=== PATIENT | female | born 1985 | race Caucasian/White ===

== ENCOUNTER → 2017-01-04 | Outpatient (CLI) | payer OTHER ==
[~2017-01-04] MED LIST: PREN-148 PO
--- OUTSIDE RECORDS SUMMARY | 2017-01-04 16:34 | XMS REPORT ---
Author Author Heidy Kennedy [facility] Address [address] [place], [place] [id number] Care Team Providers Care Public Health Officer Name Role Phone Heidy Kennedy PCP Unavailable Allergies and Adverse Reactions Name Reaction Notes NO KNOWN DRUG ALLERGIES Plan of Treatment Not available. Medications Active Name Start Date Estimated Completion Date SIG Comments Mobic 15 mg oral tablet take 1 tablet (15 mg) by oral route once daily amoxicillin 500 mg oral capsule 04/01/2016 04/08/2016 Take 2 500mg capsules BID for 7 days Name Start Date Expiration Date SIG Comments phentermine 37.5 mg oral tablet 02/23/2014 03/25/2014 take 1 tablet (37.5 mg) by oral route once daily before breakfast for 30 days azithromycin 250 mg oral tablet 11/13/2014 11/18/2014 take 2 tablets (500 mg) by oral route once daily for 1 day then 1 tablet (250 mg) by oral route once daily for 4 days Bactrim DS 800-160 mg oral tablet 04/15/2015 04/22/2015 take 1 tablet by oral route every 12 hours for 7 days phentermine 37.5 mg oral tablet 11/21/2015 12/21/2015 take 1 tablet (37.5 mg) by oral route once daily before breakfast for 30 days Discontinued Name Start Date Discontinued Date SIG Comments omeprazole Oral 11/30/2012 Take one tablet daily Sprintec (28) 0.25-35 mg-mcg oral tablet 04/12/2012 11/30/2012 1QD - TAKE ONE TABLET BY MOUTH EVERY DAY Sprintec (28) 0.25-35 mg-mcg oral tablet 02/14/2015 09/23/2015 take 1 tablet by oral route once daily phentermine 37.5 mg oral tablet 02/14/2015 04/15/2015 take 1 tablet (37.5 mg) by oral route once daily before breakfast hydrocodone-acetaminophen 5-325 mg oral tablet 04/16/2015 09/23/2015 take 1 tablet by oral route every 4-6 hours as needed for pain Brintellix 10 mg oral tablet 10/21/2015 11/21/2015 take 1 tablet (10 mg) by oral route once daily at the same time each day Medrol (Aleksey) 4 mg oral tablets,dose pack 10/21/2015 11/21/2015 take as directed Celexa 20 mg oral tablet 11/21/2015 03/10/2016 take 1 tablet (20 mg) by oral route once daily for 30 days Flonase Allergy Relief 50 mcg/actuation nasal spray,suspension 02/24/201603/10 inhale 1 spray (50 mcg) in each nostril by intranasal route once daily Zyrtec-D 5-120 mg oral tablet extended release 12 hr 02/24/2016 03/10/2016 take 1 tablet by oral route every 12 hours Zithromax Z-Aleksey 250 mg oral tablet 03/04/2016 03/10/2016 take 2 tablets by oral once daily for 1 day, then 1 (250mg) by oral route daily for 4 days Problem List Description Status Onset Anxiety Active 11/21/2015 Depression Active 11/21/2015 Vital Signs Date Time BP-Sys(mm[Hg] BP-Sandy(mm[Hg]) HR(bpm) RR(rpm) Temp WT HT HC BMI BSA BMI Percentile O2 Sat(%) 03/10/2016 3:51:00 PM 122 mmHg 64 mmHg 77 bpm 18 rpm 98.2 F 194.5 lbs 65 in 32.37 kg/m2 2.01 m2 99 % 11/21/2015 3:36:00 PM 124 mmHg 64 mmHg 78 bpm 18 rpm 97.7 F 190.25 lbs 65 in 31.6589 kg/m 1.9894 m 98 % 10/21/2015 9:12:00 AM 124 mmHg 66 mmHg 78 bpm 18 rpm 97.7 F 65 in 97 % 09/23/2015 9:11:00 AM 132 mmHg 76 mmHg 80 bpm 18 rpm 97.8 F 199.25 lbs 65 in 33.1566 kg/m 2.0359 m 96 % 04/15/2015 9:50:00 AM 126 mmHg 76 mmHg 78 bpm 18 rpm 97.9 F 174.125 lbs 65 in 28.98 kg/m2 1.90 m2 97 % 02/14/2015 8:25:00 AM 124 mmHg 64 mmHg 77 bpm 18 rpm 97.7 F 170.125 lbs 65 in 28.31 kg/m 1.8812 m 100 % 01/16/2015 9:47:00 AM 116 mmHg 64 mmHg 85 bpm 18 rpm 98.7 F 178.375 lbs 65.5 in 29.23 kg/m2 1.93 m2 98 % 12/05/2014 8:44:00 AM 104 mmHg 68 mmHg 99 bpm 16 rpm 98.5 F 183.5 lbs 65.5 in 30.0713 kg/m 1.9613 m 100 % 11/13/2014 11:39:00 AM 112 mmHg 68 mmHg 73 bpm 16 rpm 97.4 F 199.375 lbs 65.5 in 32.67 kg/m2 2.04 m2 99 % 09/12/2014 4:18:00 PM 132 mmHg 73 mmHg 69 bpm 97.6 F 192 lbs 65.5 in 31.4642 kg/m 2.0062 m 02/23/2014 9:55:00 AM 126 mmHg 66 mmHg 72 bpm 18 rpm 97.5 F 182.375 lbs 65.5 in 29.89 kg/m2 1.96 m2 98 % 11/23/2013 3:46:00 PM 126 mmHg 66 mmHg 78 bpm 18 rpm 98.6 F 187.375 lbs 65.5 in 30.7063 kg/m 1.9819 m 99 % 10/17/2013 2:39:00 PM 126 mmHg 64 mmHg 63 bpm 18 rpm 97.6 F 203 lbs 65.5 in 33.27 kg/m2 2.06 m2 100 % 09/07/2013 3:02:00 PM 138 mmHg 81 mmHg 76 bpm 98.2 F 194.375 lbs 65.5 in 31.8534 kg/m 2.0186 m 08/10/2013 2:00:00 PM 133 mmHg 78 mmHg 83 bpm 97.8 F 191.125 lbs 65.5 in 31.32 kg/m2 2.00 m2 11/30/2012 4:02:00 PM 135 mmHg 80 mmHg 85 bpm 96.4 F 165.375 lbs 65.5 in 27.101 kg/m 1.8619 m 04/11/2012 2:45:00 PM 136 mmHg 85 mmHg 84 bpm 97.9 F 192.375 lbs 65.5 in 31.53 kg/m2 2.01 m2 04/01/2011 2:16:00 PM 140 mmHg 91 mmHg 87 bpm 98.4 F 195 lbs 65 in 32.4494 kg/m 2.0141 m 05/02/2010 9:45:00 AM 100 mmHg 60 mmHg 72 bpm 18 rpm 98 F 180 lbs 04/08/2010 10:20:00 AM 110 mmHg 70 mmHg 80 bpm 18 rpm 98.7 F 182 lbs 03/26/2010 3:42:00 PM 123 mmHg 79 mmHg 84 bpm 97.8 F 185 lbs 65 in 30.79 kg/m2 1.96 m2 Social History Name Description Comments Alcohol Use - Occasional 1-2 times/month on weekend Tobacco Former smoker 03/10/2016 - History of Procedures Date Ordered Description Order Status 12/17/2015 12:00 AM URNLS DIP STICK/TABLET RGNT AUTO W/O MICROSCOPY Returned 04/11/2012 12:00 AM CYTOPATH C/V MANUAL Returned 04/11/2012 12:00 AM SPECIMEN HANDLING OFFICE-LAB Reviewed 04/11/2012 12:00 AM N. GONORRHOEAE ASSAY W/OPTIC Returned 04/11/2012 12:00 AM CHLAMYDIA CULTURE Returned 11/30/2012 12:00 AM CYTOPATH C/V THIN LAYER Returned 11/30/2012 12:00 AM SPECIMEN HANDLING OFFICE-LAB Reviewed 11/30/2012 12:00 AM N.GONORRHOEAE DNA AMP PROB Returned 11/30/2012 12:00 AM CHLAMYDIA CULTURE Returned 11/30/2012 12:00 AM HIV-1ANTIBODY Returned 11/30/2012 12:00 AM URINALYSIS AUTO W/SCOPE Returned 11/30/2012 12:00 AM OBSTETRIC PANEL Returned 02/09/2013 12:00 AM ALPHA-FETOPROTEIN SERUM Returned 03/09/2013 12:00 AM OB US >/=14 WKS SNGL FETUS Returned 05/05/2013 12:00 AM OB US LIMITED FETUS(S) Returned 05/08/2013 12:00 AM GLUCOSE TEST Returned 05/08/2013 12:00 AM COMPLETE CBC W/AUTO DIFF WBC Returned 05/08/2013 12:00 AM Type and screen Returned 06/26/2013 12:00 AM CULTURE OTHR SPECIMN AEROBIC Returned 07/05/2013 12:00 AM OB US LIMITED FETUS(S) Returned 08/10/2013 12:00 AM COMPLETE CBC AUTOMATED Returned 09/07/2013 12:00 AM CYTOPATH C/V MANUAL Returned 09/07/2013 12:00 AM SPECIMEN HANDLING OFFICE-LAB Reviewed 03/26/2010 12:00 AM CYTOPATH C/V MANUAL Reviewed 03/26/2010 12:00 AM SPECIMEN HANDLING OFFICE-LAB Reviewed 03/26/2010 12:00 AM N. GONORRHOEAE ASSAY W/OPTIC Reviewed 03/26/2010 12:00 AM CHLAMYDIA CULTURE Reviewed 03/26/2010 12:00 AM Breast Ultrasound Reviewed 09/12/2014 12:00 AM SPECIMEN HANDLING OFFICE-LAB Reviewed 09/12/2014 12:00 AM CYTOPATH C/V THIN LAYER Returned 11/13/2014 12:00 AM THER/PROPH/DIAG INJ SC/IM Reviewed 11/13/2014 12:00 AM Decadron, Per 1 Mg [facility]# [address]-68 Reviewed 11/13/2014 12:00 AM Depo-Medrol, Per 80 Mg [facility]#7315-8841-47 Reviewed 04/01/2011 12:00 AM CYTOPATH C/V MANUAL Reviewed 04/01/2011 12:00 AM SPECIMEN HANDLING OFFICE-LAB Reviewed Results Summary Data and Description Results 11/30/2012 4:45 PM WBC 7.7 RBC 4.43 HGB 13.40 g/dLHCT 38.70 %MCV 87.0 fLMCH 30.20 pgMCHC 34.60 g/dLRDW CV 12.20 %MPV 10.50 fLPLT 210 %NEUT 73.50 %%LYMP 17.90 %%MONO 8.0 %%EOS 0.50 %%BASO 0.10 %#NEUT 5.67 #LYMP 1.38 #MONO 0.62 #EOS 0.04 #BASO 0.01 COLOR YELLOW APPEARANCE CLEAR SPEC GRAV 1.020 pH 6.0 PROTEIN NEGATIVE GLUCOSE NEGATIVE KETONE NEGATIVE BILIRUBIN NEGATIVE BLOOD NEGATIVE NITRITE NEGATIVE LEUK SCREEN NEGATIVE CASTS/LPF NEGATIVE CRYSTALS NEGATIVE MUCOUS THRDS NEGATIVE BACTERIA NEGATIVE EPITH CELLS FEW SQUAMOUS TRICHOMONAS NEGATIVE YEAST NEGATIVE ABO/Rh Type O Positive HIV AG/AB COMBO 0.33 RUBELLA 14.0 IU/mL 05/08/2013 5:46 PM WBC 8.9 RBC 3.62 HGB 11.20 g/dLHCT 32.60 %MCV 90.0 fLMCH 30.90 pgMCHC 34.40 g/dLRDW CV 12.40 %MPV 10.60 fLPLT 197 %NEUT 76.60 %%LYMP 18.60 %%MONO 4.30 %%EOS 0.40 %%BASO 0.10 %#NEUT 6.84 #LYMP 1.66 #MONO 0.38 #EOS 0.04 #BASO 0.01 07/26/2013 5:35 PM WBC 10.8 RBC 4.03 HGB 12.20 g/dLHCT 35.20 %MCV 87.0 fLMCH 30.30 pgMCHC 34.70 g/dLRDW CV 12.50 %MPV 10.70 fLPLT 211 %NEUT 72.50 %%LYMP 20.30 %%MONO 6.60 %%EOS 0.50 %%BASO 0.10 %#NEUT 7.81 #LYMP 2.18 #MONO 0.71 #EOS 0.05 #BASO 0.01 ABO/Rh Type O Positive 07/27/2013 2:25 PM WBC 11.6 RBC 4.10 HGB 12.20 g/dLHCT 36.40 %MCV 89.0 fLMCH 29.80 pgMCHC 33.50 g/dLRDW CV 12.50 %MPV 10.80 fLPLT 186 PROTIME 9.70 secsINR 0.9 PTT 25.10 secsFIBRINOGEN 516.0 mg/dL 07/27/2013 6:00 PM WBC 13.7 RBC 4.25 HGB 12.80 g/dLHCT 37.60 %MCV 89.0 fLMCH 30.10 pgMCHC 34.0 g/dLRDW CV 12.40 %MPV 10.90 fLPLT 215 07/28/2013 7:10 AM WBC 18.3 RBC 3.56 HGB 10.90 g/dLHCT 31.60 %MCV 89.0 fLMCH 30.60 pgMCHC 34.50 g/dLRDW CV 12.40 %MPV 10.60 fLPLT 209 08/10/2013 2:36 PM WBC 6.5 RBC 4.02 HGB 11.90 g/dLHCT 35.80 %MCV 89.0 fLMCH 29.60 pgMCHC 33.20 g/dLRDW CV 12.20 %MPV 10.50 fLPLT 510 12/18/2015 4:23 PM COLOR YELLOW APPEARANCE CLEAR SPEC GRAV 1.015 pH 7.5 PROTEIN TRACE GLUCOSE NEGATIVE mg/dLKETONE TRACE BILIRUBIN NEGATIVE BLOOD TRACE- INTACT NITRITE NEGATIVE LEUK SCREEN NEGATIVE CASTS/LPF NEGATIVE /LPFCRYSTALS NEGATIVE MUCOUS THRDS FEW BACTERIA FEW EPITH CELLS FEW SQUAMOUS /HPFTRICHOMONAS NEGATIVE YEAST NEGATIVE History Of Immunizations Name Date Admin Mfg Name Mfg Code Trade Name Lot# Route Inj Vis Given Vis Pub CVX Influenza 08/13/2014 Not Entered NE Not Entered Not Entered Not Entered 11/01/2015 11/01/2015 141 Influenza 08/16/2015 Not Entered NE Fluvirin Not Entered Not Entered 10/02/2015 11/01/2015 140 History of Past Illness Name Date of Onset Comments Routine gynecological examination Mar 26 2010 3:49PM Contraception, Surveillance Mar 26 2010 3:49PM Breast Lump Mar 26 2010 3:49PM Obesity Mar 26 2010 3:49PM Tobacco Abuse Mar 26 2010 3:49PM Left breast mass Apr 08 2010 10:23AM Acid reflux Breast Neoplasm, Benign May 02 2010 9:51AM Post Operative Follow-up Visit May 02 2010 9:51AM Anxiety 11/21/2015 Depression 11/21/2015 Routine gynecological examination Apr 01 2011 2:17PM Routine gynecological examination Apr 11 2012 2:47PM Obesity Apr 11 2012 2:47PM Tobacco Abuse Apr 11 2012 2:47PM Contraception, Surveillance Apr 11 2012 2:47PM test confirmed positive Nov 30 2012 4:04PM , First Normal Feb 09 2013 10:06AM Large For Dates, Antepartum Apr 07 2013 10:00AM Genitourinary Organ Radiologic Abnormality Apr 07 2013 10:00AM , First Normal May 08 2013 4:45PM Group B Strep Screening, Jun 26 2013 4:56PM , High Risk Jun 26 2013 4:56PM Large For Dates, Antepartum Jul 05 2013 3:58PM Postoperative Examination Following Surgery Aug 10 2013 2:03PM Anemia Aug 10 2013 2:03PM Post- Follow-Up Sep 07 2013 3:04PM Body Mass Index [BMI]; body mass index between 30-39, adult; body mass index 33.0-33.9, adult Oct 17 2013 2:42PM Contraceptive Counseling Oct 17 2013 2:42PM Body Mass Index [BMI]; body mass index between 30-39, adult; body mass index 30.0-30.9, adult Nov 23 2013 3:48PM Contraceptive Counseling Nov 23 2013 3:48PM Contraceptive Counseling Feb 23 2014 9:57AM Body Mass Index [BMI]; body mass index between 25-29, adult; body mass index 29.0-29.9, adult Feb 23 2014 9:57AM Routine gynecological examination Sep 12 2014 4:21PM Upper Respiratory Infections Nov 13 2014 11:45AM Weight gain Nov 13 2014 11:45AM Body mass index 32.0-32.9, adult Nov 13 2014 11:45AM Body Mass Index [BMI]; body mass index between 30-39, adult; body mass index 30.0-30.9, adult Dec 05 2014 8:49AM Acid reflux Dec 05 2014 8:49AM Acid reflux Jan 16 2015 9:49AM BMI 29.0-29.9,adult Jan 16 2015 9:49AM Overweight Feb 14 2015 8:27AM Irregular menses Feb 14 2015 8:27AM Abscess Apr 15 2015 9:51AM Depression Sep 23 2015 9:13AM Anxiety and depression Oct 21 2015 9:15AM BMI 31.0-31.9,adult Oct 21 2015 9:15AM Acute nonintractable headache, unspecified headache type Oct 21 2015 9:15AM Body Mass Index [BMI]; body mass index between 30-39, adult; body mass index 31.0-31.9, adult Nov 21 2015 3:39PM Anxiety Nov 21 2015 3:39PM Depression Nov 21 2015 3:39PM Dysuria Dec 17 2015 3:55PM Foot arch pain, right Mar 10 2016 3:53PM Payers Insurance Name Company Name Plan Name Plan Number Policy Number Policy Group Number Start Date [employer] Benefits [employer] Benefits [id number] N/A [employer] Financial Assistance [employer] [phone] N/A History of Encounters Visit Date Visit Type Provider 03/10/2016 Office visit Heidy Kennedy SAP ANALYST 11/21/2015 Office visit Heidy Kennedy SAP ANALYST 10/21/2015 Office visit Heidy Kennedy SAP ANALYST 09/23/2015 Office visit Heidy Kennedy SAP ANALYST 04/15/2015 Office visit Heidy Kennedy SAP ANALYST 02/14/2015 Office visit Heidy Kennedy SAP ANALYST 01/16/2015 Office visit Heidy Kennedy SAP ANALYST 12/05/2014 Office visit Heidy Kennedy SAP ANALYST 11/13/2014 Office visit 11/13/2014 Office visit Heidy Kennedy SAP ANALYST 09/12/2014 Office visit Tasneem Patiño SAP ANALYST 02/23/2014 Office visit Heidy Kennedy SAP ANALYST 11/23/2013 Office visit Heidy Kennedy SAP ANALYST 10/17/2013 Office visit Heidy Brent SAP ANALYST 09/07/2013 Office visit Horacio Buchanan MD 08/10/2013 Office visit Horacio Buchanan MD 07/27/2013 Hospital Ramon So MD 07/27/2013 [facility] Horacio Buchanan MD 07/19/2013 Office visit Horacio Buchanan MD 07/12/2013 Office visit Horacio Buchanan MD 07/05/2013 Office visit Horacio Buchanan MD 06/26/2013 Office visit Horacio Buchanan MD 06/26/2013 [facility] Horacio Buchanan MD 06/19/2013 Office visit Horacio Buchanan MD 06/05/2013 Office visit Tasneem Patiño SAP ANALYST 05/22/2013 Office visit Horacio Buchanan MD 05/08/2013 Office visit Horacio Buchanan MD 04/06/2013 Office visit Horacio Buchanan MD 03/09/2013 Office visit Horacio Buchanan MD 02/09/2013 Office visit Horacio Buchanan MD 01/12/2013 Office visit Horacio Buchanan MD 2012 Office visit Horacio Buchanan MD 11/30/2012 Office visit Horacio Buchanan MD 04/11/2012 Office visit Horacio Buchanan MD 04/01/2011 Office visit Horacio Buchanan MD 05/02/2010 Surgery Burton Patton MD 04/28/2010 Surgery Burton Patton MD 04/08/2010 Surgery Burton Patton MD 03/26/2010 Office visit Horacio Buchanan MD
--- NOTE | 2017-01-04 17:09 | Diagnostic Imaging Report ---
INDICATION: Anatomical survey. COMPARISON: None. DISCUSSION: Transabdominal sonographic evaluation of the gravid uterus was performed. Single live intrauterine at 21 weeks 3 days by sonographic measurements. Grade 2 placenta is located anteriorly with no placenta previa. Normal amniotic fluid index. presentation varied throughout the exam. heart rate measures 150 beats per minute. The cervix measures 5 cm. The four-chamber heart was not well visualized due to positioning. Recommend short-term sonographic followup. Otherwise, there was good visualization of the kidneys, bladder, stomach, brain, three-vessel cord and insertion, spine, and extremities. Biparietal diameter measures 4.97 cm. Head circumference measures 18.7 cm. Abdominal circumference measures 16.76 cm. Femur length measures 3.6 cm. EDC by today's ultrasound is 05/14/2017. Estimated weight is 431 g which is in the 50th percentile. IMPRESSION: 1. Single live intrauterine at 21 weeks 3 days by sonographic measurements. 2. Poor visualization of the four-chamber heart due to positioning. Recommend short-term sonographic followup. 3. Remainder of the anatomical survey appears within normal limits. Dictated by: Dictated on workstation # [id number]
== END ==
LOC: RAD 16:29
PROVIDERS: ATTEND Obstetrics & Gynecology
DX: O24.415 Gestational diabetes mellitus in pregnancy, controlled by oral hypoglycemic drugs (principal)
CPT/HCPCS: 76805

== ENCOUNTER 2017-03-09 11:55 | Outpatient (CLI) | payer OTHER ==
[~2017-03-09] VITALS: Ht 162.6 cm; Wt 107.5 kg
[2017-03-09] MEDS ORDERED: PREN-148 PO ×2 (12:48)
[2017-03-09 15:31] VITALS: BP 127/59
--- NOTE | 2017-03-10 11:32 | Physician Query-Final Dx ---
JOSE DE JESUS BARTON 03/10/17 1132: Clinic Account Progress/Dx Physician Query: Please give diagnosis Date of Service March 09, 2017 at 11:55 HAILE PRASAD DO 03/10/17 1525: Clinic Account Progress/Dx DIAGNOSIS: Diagnosis decreased movement, third trimester JOSE DE JESUS BARTON March 10, 2017 11:32 HAILE PRASAD DO March 10, 2017 15:25
== END 2017-03-09 13:30 | disposition home or self-care (01) ==
LOC: WSo 11:55 → LDRP 11:57 → WSo 13:30
PROVIDERS: ATTEND Obstetrics & Gynecology
DX: O36.8130 Decreased fetal movements, third trimester, not applicable or unspecified (principal); Z3A.33 33 weeks gestation of pregnancy
CPT/HCPCS: 99212

== ENCOUNTER → 2017-03-10 | Outpatient (CLI) | payer OTHER ==
--- NOTE | 2017-03-10 18:12 | Diagnostic Imaging Report ---
INDICATION: Gestational diabetes. TECHNIQUE: Multiple real-time grayscale images were obtained over the gravid uterus. COMPARISON: None FINDINGS: There is a single living intrauterine in a transverse presentation. The amniotic fluid index is 14. The placenta is grade 3 and anterior. There is no previa. The heart rate is 144 beats per minute and regular. Cervical length is 6.3 cm. Four-chamber heart is seen well. The sonographically estimated gestational age by this sonogram is 31 weeks 2 days. Biometrical measurements are as follows: Biparietal 7.74 cm, age 31 weeks 1 days. Head circumference 28.82 cm, age 31 weeks 5 days. Abdominal circumference 26.81 cm, age 31 weeks 0 days. Femur length 5.99 cm, age 31 weeks 2 days. Sonographic estimate age: 31 weeks 2 days. Sonographic estimated date of delivery: 05/10/2017. Estimated Weight: 1697 gm (+/- 248 gm). LMP percentile: 71%. heart rate: 144 beats per minute. number: 1 of 1. IMPRESSION: Single living intrauterine with sonographically estimated gestational age of 31 weeks 2 days and estimated date of confinement of May 18, 2017. Dictated by: Dictated on workstation # [id number]
== END ==
LOC: RAD 17:19
PROVIDERS: ATTEND Obstetrics & Gynecology
DX: O24.414 Gestational diabetes mellitus in pregnancy, insulin controlled (principal); Z3A.31 31 weeks gestation of pregnancy
CPT/HCPCS: 76816

== ENCOUNTER 2017-04-26 15:19 | Outpatient (CLI) | payer OTHER ==
[~2017-04-26] VITALS: Ht 162.6 cm; Wt 108.6 kg
[2017-04-26 15:25] VITALS: BP 140/80
== END 2017-04-26 16:00 ==
LOC: PREOP 15:19
PROVIDERS: ATTEND Obstetrics & Gynecology
DX: Z01.818 Encounter for other preprocedural examination (principal); Z11.2 Encounter for screening for other bacterial diseases; O34.211 Maternal care for low transverse scar from previous cesarean delivery
CPT/HCPCS: 87081

== ENCOUNTER 2017-04-29 18:05 | Outpatient (CLI) | payer OTHER ==
[~2017-04-29] VITALS: Ht 162.6 cm; Wt 124.1 kg
[2017-04-29 18:10] VITALS: BP 120/82
[2017-04-29 19:45] VITALS: BP 139/63
--- NOTE | 2017-04-30 08:45 | Physician Query-Final Dx ---
JOSE DE JESUS BARTON 04/30/17 0845: Clinic Account Progress/Dx Physician Query: Please give diagnosis Date of Service Apr 29, 2017 at 18:05 ADE HOPPER DO 04/30/17 0952: Clinic Account Progress/Dx DIAGNOSIS: Diagnosis 37 week iup back pain GDM JOSE DE JESUS BARTON Apr 30, 2017 08:45 ADE HOPPER DO Apr 30, 2017 09:52
== END 2017-04-29 19:55 | disposition home or self-care (01) ==
LOC: LDRP 18:05 → WSo 18:05
PROVIDERS: ATTEND Obstetrics & Gynecology
DX: O99.89 Other specified diseases and conditions complicating pregnancy, childbirth and the puerperium (principal); O26.893 Other specified pregnancy related conditions, third trimester; M54.9 Dorsalgia, unspecified; O24.419 Gestational diabetes mellitus in pregnancy, unspecified control; Z3A.37 37 weeks gestation of pregnancy
CPT/HCPCS: 99213

== ENCOUNTER 2017-05-05 05:36 | Inpatient (IN) | payer OTHER ==
[~2017-05-05] VITALS: Ht 170.2 cm; Wt 108.0 kg
[~2017-05-05 05:36] MED LIST changes: +CITRIC ACID/SOB CIT (BICITRA) 30 ML UDC ONE; +FAMOTIDINE 20MG/2ML IV (PEPCID) ONE; +METOCLOPRAMIDE INJ 10 MG/2 ML (REGLAN) ONE; +ceFAZolin 2 GM/50 ML NS 50 ML ONE
[2017-05-05] MEDS ORDERED: LACTATED RINGERS 1,000 ML IV PRN ×2 (06:05)
[2017-05-05] MEDS ORDERED: METOCLOPRAMIDE INJ 10 MG/2 ML (REGLAN) IV ONE ×2 (06:15→07:30)
[2017-05-05] MEDS ORDERED: FAMOTIDINE 20MG/2ML IV (PEPCID) IV ONE ×2 (06:15→07:30)
[2017-05-05] MEDS ORDERED: CITRIC ACID/SOB CIT (BICITRA) 30 ML UDC PO ONE ×2 (06:15→07:30)
[2017-05-05 06:37] LABS: BASOPHILS % (AUTO) 0 % (0-10); EOSINOPHILS # (AUTO) 0.1 10^3/uL (0.0-0.3); EOSINOPHILS % (AUTO) 1 % (0-10); LYMPHOCYTES # (AUTO) 1.7 X 10^3 (1.0-4.0); LYMPHOCYTES % (AUTO) 22 % (12-44); MEAN CORPUSCULAR HEMOGLOBIN 29 PG (25-34); MEAN CORPUSCULAR HGB CONC 34 G/DL (32-36); MEAN CORPUSCULAR VOLUME 86 FL (80-99); MEAN PLATELET VOLUME 11.6 FL (7.4-10.4); MONOCYTES # (AUTO) 0.5 X 10^3 (0.0-1.0); MONOCYTES % (AUTO) 7 % (0-12); NEUTROPHILS # (AUTO) 5.2 X 10^3 (1.8-7.8); NEUTROPHILS % (AUTO) 70 % (42-75); PLATELET COUNT 177 10^3/uL (130-400); RED BLOOD COUNT 4.14 10^6/uL (4.35-5.85); RED CELL DISTRIBUTION WIDTH 12.4 % (10.0-14.5); WHITE BLOOD COUNT 7.5 10^3/uL (4.3-11.0)
[2017-05-05 07:00] VITALS: BP 138/61
[2017-05-05] MEDS ORDERED: ONDANSETRON 4 MG/2 ML (SDV) Z0FRAN ONE (07:02)
[2017-05-05] MEDS ORDERED: DEXAMETHASONE PF 10 MG/ML (DECADRON) VIAL ONE (07:02)
[2017-05-05] MEDS ORDERED: OXYTOCIN/NORMAL SALINE 1,000 ML IV ONE (07:02)
[2017-05-05] MEDS ORDERED: fentaNYL INJECTION 100 MCG/2 ML AMP ONE (07:03)
--- NOTE | 2017-05-05 07:07 | History & Physical-OB ---
OB - Chief Complaint & HPI Date/Time Date of Admission: Date of Admission: May 05, 2017 at 06:01 Time Seen by Provider: 07:05 Chief Complaint/History OB-Reason for Admission/Chief: Section Hx : 2 Hx Para: 1 Expected Date of Delivery: May 18, 2017 Gestational Age in Weeks: 38 Indication for : desires repeat Other reason for admission: GDMA2 on glyburide History of Labs O pos Antibody neg RNI RPR NR HBsAg NR HIV NR GC neg GBS neg Allergies and Home Medications Allergies Coded Allergies: No Known Drug Allergies (Unverified , 03/09/17) Home Medications Vit #76/Iron,Carb/FA 1 Each Tablet, 1 EACH PO DAILY, (Reported) OB - History Hx of Present Care: Yes Ultrasounds: Normal mid trimester US Obstetrical Complications: Gestational Diabetes Medical Complications: None Delivery History Adverse Rxn to Tranfusion: No (N/A) Patient Past Medical History BMI >35 Social History/Family History HIV/AIDS: No Recent Infectious Disease Expo: No Sexually Transmitted Disease: No Alcohol Use: Denies Use Recreational Drug Use: No OB - Admission Exam Physical Exam Date Seen by Provider: May 05, 2017 Time Seen by Provider: 07:00 HEENT: NCAT Heart: Rhythm Normal Lungs: Clear Abdomen: Gravid Extremities: Normal Reflexes: Normal Heart Rate: 130's Accelerations: Accelerations Present Decelerations: No Decelerations Short Term Variability: Present Halfway Variability: Average (6-25) Contractions on Admission: >10 Minutes Apart Intensity: Mild Labs Laboratory Tests Test 05/05/17 06:15 Range/Units White Blood Count 7.5 4.3-11.0 10^3/uL Red Blood Count 4.14 L 4.35-5.85 10^6/uL Hemoglobin 12.1 11.5-16.0 G/DL Hematocrit 36 35-52 % Mean Corpuscular Volume 86 80-99 FL Mean Corpuscular Hemoglobin 29 25-34 PG Mean Corpuscular Hemoglobin Concent 34 32-36 G/DL Red Cell Distribution Width 12.4 10.0-14.5 % Platelet Count 177 130-400 10^3/uL Mean Platelet Volume 11.6 H 7.4-10.4 FL Neutrophils (%) (Auto) 70 42-75 % Lymphocytes (%) (Auto) 22 12-44 % Monocytes (%) (Auto) 7 0-12 % Eosinophils (%) (Auto) 1 0-10 % Basophils (%) (Auto) 0 0-10 % Neutrophils # (Auto) 5.2 1.8-7.8 X 10^3 Lymphocytes # (Auto) 1.7 1.0-4.0 X 10^3 Monocytes # (Auto) 0.5 0.0-1.0 X 10^3 Eosinophils # (Auto) 0.1 0.0-0.3 10^3/uL Basophils # (Auto) 0.0 0.0-0.1 10^3/uL OB - Assessment/Plan/Diagnosis Assessment Assessment: section Plan Plan: Section Discharge Diagnosis Diagnosis: 31 yo @ 38.1 GDMA2 GBS neg Previous x 1 ADE HOPPER DO May 05, 2017 07:07
[2017-05-05] MEDS ORDERED: LACTATED RINGERS 1,000 ML IV SCH ×2 (07:17)
[2017-05-05] MEDS ORDERED: OXYTOCIN/NORMAL SALINE 500 ML IV SCH (07:27)
[2017-05-05] MEDS ORDERED: TETANUS,DIPTH,PERTUSS P/F (BOOSTRIX) 0.5 ML VIAL IM SCH (07:30)
[2017-05-05] MEDS ORDERED: HYDROmorphone (DILAUDID) 2 MG/ML VIAL IVP PRN (07:30)
[2017-05-05] MEDS ORDERED: ONDANSETRON 4 MG/2 ML (SDV) Z0FRAN IVP PRN (07:30)
[2017-05-05] MEDS ORDERED: MEASLES,MUMPS,RUBELLA 1 EA INJ SC SCH (07:30)
--- NOTE | 2017-05-05 07:31 | Discharge Inst-Women's Service ---
Discharge Inst-Women's Serv Depart Medication/Instructions New, Converted or Re-Newed RX: RX on Chart Consults/Follow Up Additional Follow Up: Yes Orders/Referrals Dr. Waddell i n7-10 days and in 6 weeks Activity Activity: Activity as Tolerated Driving Instructions: No Driving for 1 Week NO SMOKING: NO SMOKING Nothing Inside Vagina: No Douching, No [place], No Tampons Diet Discharge Diet: No Restrictions Symptoms to Report to : Bleeding Excessive, Pain Increased, Fever Over 101 Degrees F, Vaginal Bleeding Increase, Questions/Concerns For Any Problems or Questions: Contact Your Physician Skin/Wound Care Infection Signs and Symptoms: Increased Redness, Foul Odor of Wound, Increased Drainage, Skin Itchy or Has a Rash, Increased Swelling, Temperature Above 101 F Operative Area Clean and Dry: Keep Incision Clean/Dry Stitches/Mike/Dermabond: Dermabond, Care of Stitches Bathing Instructions: ADE Mixon DO May 05, 2017 07:31
[2017-05-05] MEDS ORDERED: HYDR-3812 PO (07:32)
[2017-05-05] MEDS ORDERED: DOCU100C37 PO (07:32)
[2017-05-05] MEDS ORDERED: IBUP-1773 PO (07:32)
[2017-05-05] MEDS ORDERED: ceFAZolin 2 GM/50 ML NS 50 ML IV NR (07:45)
[2017-05-05] MEDS ORDERED: PHENYLEPHRINE 100 MCG/ML 10 ML (ANESTHESIA) SYR ONE (07:47)
--- NOTE | 2017-05-05 08:29 | Progress Note-Post Operative ---
Post-Operative Progess Note Surgeon (s)/Unit Manager Rn (s) Surgeon ADE HOPPER DO Unit Manager Rn: Selena Juarez ELECTRIC BATH ATTENDANT Pre-Operative Diagnosis Previous x 1, GDMA2 Post-Operative Diagnosis same Procedure & Operative Findings Date of Procedure 05/05/17 Procedure Performed/Findings UOP: 80 mL Fluid 1200 ml LR EBL: 600 Findings: live female weight 8lbs 10 oz, APGARs 8/9, grossly normal uterus, tubes and ovaries Patient was taken the operating room where spinal analgesia is under adequate she's placed in the supine position with leftward tilt prepped and draped in normal sterile fashion. Anesthesia is tested and found to be adequate, timeout was performed. I then proceeded with making a Pfannenstiel skin incision through the previously existing scar using the knife and carried down to the underlying fascia using Bovie cautery. The fascial incision is extended laterally using Bovie cautery, I then grasped the superior aspect of the fascial incision using Michelle clamps and tented upward and dissected off of the underlying rectus muscles. In a similar fashion, the inferior margin of the rectus fascia is grasped with Ethan clamps and tented upward and dissected under lying rectus muscles. The rectus and pyramidalis muscles are then dissected in the midline using Austin scissors exposing the peritoneum. the peritoneum is then entered bluntly and the peritoneal incision extended superiorly and inferiorly using Metzenbaum scissors with good visualization of underlying bladder and bowel. I then placed the Vikas ring retractor into the peritoneal incision which offers excellent lateral sidewall retraction. I identified the lower uterine segment which is found to be thinned out and make a low-transverse incision through the vesicouterine peritoneum using the knife and dissected off of the lower uterine segment cranial bladder flap. Myotomy is then continued until membranes are visualized which at that point I extend the uterine incision laterally and superiorly using banded scissors the infant is found well engaged into the pelvis and difficult to elevate it up out of the pelvis, however in doing so I'm able to elevate the 's head up to the incision and bulb suction the nares and oropharynx the anterior posterior shoulders were delivered and the infantis then brought out onto the operative field. the cord is doubly clamped and cut and the is handed off to nurses in attendance. Cord blood is collected. Three-vessel cord with intact placenta is delivered spontaneously thereafter. IV Pitocin is initiated to facilitate uterine contraction. Uterus becomes firm with bimanual massage. The uterus is then exteriorized and cleared of all endometrial clots and debris. I then closed the uterine incision using 0 Vicryl suture in a running locked fashion, a second layer of imbricating 0 Monocryl was placed and excellent hemostasis is noted after doing so. I then placed the uterus back within the pelvis and copiously irrigated the pelvis using normal saline. There is no active bleeding noted from any my dissection planes. I placed Interceed anti-adhesive over my low transverse incision, and proceed to closing the peritoneum using 3-0 Vicryl suture in a running fashion. The rectus muscles are reapproximated using 3-0 Vicryl suture in interrupted fashion. The fascia is reapproximated using 0 Vicryl suture in a running fashion. the subcutaneous tissue is reapproximated using 30 plain in interrupted subcutaneous stitch. And the skin is reapproximated using 4-0 Monocryl in a running subcuticular. Dermabond is applied to the incision and a sterile dressing is that he is a white tape. The patient tolerated the procedure well and is taken to the recovery area in stable condition. Lap and sponge count is correct at the end of the procedure and she may count is correct as well. 1 g of Ancef was given preoperatively for infection prophylaxis. Anesthesia Type spinal Estimated Blood Loss Estimated blood loss (mL): 600 Specimens/Packing Specimens Removed placenta ADE HOPPER May 05, 2017 8:29 am
[2017-05-05] MEDS ORDERED: diphenhydrAMINE 50 MG/ML INJ (BENADRYL) IV PRN (08:30)
[2017-05-05] MEDS ORDERED: METOCLOPRAMIDE INJ 10 MG/2 ML (REGLAN) IV PRN (08:30)
[2017-05-05] MEDS ORDERED: ONDANSETRON 4 MG/2 ML (SDV) Z0FRAN IV PRN (08:30)
[2017-05-05] MEDS ORDERED: NALOXONE 0.4 MG/ML 1 ML (NARCAN) VIAL IV PRN ×2 (08:30)
[2017-05-05] MEDS: DOCUSATE SODIUM 100 MG (COLACE) CAP PO SCH (09:41)
[2017-05-05] MEDS: KETOROLAC 30 MG/ML VIAL IVP SCH ×3 (09:41→22:33)
[2017-05-05 09:46] VITALS: BP 125/66
[2017-05-05] MEDS: HYDROcodone/APAP 5 MG/325 MG (LORTAB) TAB PO PRN ×4 (11:25→23:45)
[2017-05-05 13:57] VITALS: BP 140/72
[2017-05-05] MEDS ORDERED: hydrOXYzine (VISTARIL) 25 MG CAP PO PRN (14:00)
[2017-05-05] MEDS ORDERED: CATHETER FLUSH 10 ML SYR IV SCH ×2 (14:00)
--- OUTSIDE RECORDS SUMMARY | 2017-05-05 17:45 | XMS REPORT | CCD ---
Author Author LULI GARDNER Organization Unknown Address [address] [facility] [address] [place] [address] Care Team Providers Care Application Integrator Name Role Phone MAK, FRANK DO Attphys MAKSTEPHANIAFRANK DO Prisurg Allergies Allergy Code Allergy Type Reaction Status TAPE 0 Allergy to substance Active No Known Drug Allergies 0 Drug allergy Active Active Medications Medication Code Dose Units Frequency Route Modification Start Date/Time Docusate Sodium 100MG Oral Capsule 2103930 100 MG NEEDED EVERY 12 H PO for constipation 07/29/2013 08:53 Prescription Detail 100 MG PO NEEDED EVERY 12 H for constipation Ibuprofen 800MG Oral Tablet 791840 800 MG NEEDED EVERY 8 HR PO FOR PAIN 07/29/2013 08:53 Prescription Detail 800 MG PO NEEDED EVERY 8 HR FOR PAIN Oxycodone And Acetaminophen 325MG-5MG Oral Tablet [id number] 1 TAB NEEDED EVERY 6 HR PO FOR PAIN 07/29/2013 08:53 Prescription Detail 1 TAB PO NEEDED EVERY 6 HR FOR PAIN Problems Problem Code Start Date Resolved Date Status SINGLE DELIVERY BY [id number] Active Procedures Unknown or Not Available. Results Unknown or Not Available. Function Status Unknown or Not Available. History of Immunizations Immunization Code Date Tdap 115 07/28/2013 Plan of Treatment Unknown or Not Available. Social History Smoking Status Code Start Date End Date Former smoker [id number] 07/26/2013 Vital Signs Unknown or Not Available. Function Status Unknown or Not Available. Goals Unknown or Not Available. ASSESSMENTS Unknown or Not Available. Health Concerns Section Unknown or Not Available.
--- OUTSIDE RECORDS SUMMARY | 2017-05-05 17:45 | XMS REPORT | CCD ---
Author Author SHONDA GARRETT Unknown Address [address] [facility] [address] [place], [place] [id number] Care Team Providers Care Bookkeeping Teacher Name Role Phone DRISS JOHN, ADE Chiphymarcy ADE NAQVI MD Vital Signs Unknown or Not Available. Allergies Allergy Code Allergy Type Reaction Status TAPE 0 Allergy to substance Active No Known Drug Allergies 0 No known drug allergies Active Procedures Procedure Code Procedure Type Date STREP SCREEN [id number] SNOMED CT 03/30/2016 History of Immunizations Immunization Code Date Tdap 115 07/28/2013 Problems Problem Code Start Date Resolved Date Status SINGLE DELIVERY BY [id number] Active Results STREP SCREEN - Collect Date/Time: 03/30/2016 20:45 Test Name Code Test Result Test Units Test Ref Range STREP SCREEN 6556-5 POSITIVE N/A NORMAL: NEGATIVE Active Medications Medication Code Dose Units Frequency Route Modification Start Date/Time Docusate Sodium 100MG Oral Capsule 9167069 100 MG NEEDED EVERY 12 H PO for constipation 07/29/2013 08:53 Prescription Detail 100 MG PO NEEDED EVERY 12 H for constipation Ibuprofen 800MG Oral Tablet 483083 800 MG NEEDED EVERY 8 HR PO FOR PAIN 07/29/2013 08:53 Prescription Detail 800 MG PO NEEDED EVERY 8 HR FOR PAIN Oxycodone And Acetaminophen 325MG-5MG Oral Tablet [id number] 1 TAB NEEDED EVERY 6 HR PO FOR PAIN 07/29/2013 08:53 Prescription Detail 1 TAB PO NEEDED EVERY 6 HR FOR PAIN Medications Administered During Visit Unknown or Not Available. Encounters Encounter Diagnosis Diagnosis Code Start Date Streptococcal sore throat 20603081 03/30/2016 Social History Smoking Status Code Start Date End Date Former smoker [id number] 07/26/2013 Patient Decision Aids Unknown or Not Available. Discharge Instructions You were admitted to [facility] on 03/30/2016 20:35 with a principal diagnosis of Streptococcal pharyngitis You had the following tests done: STREP SCREEN You were discharged from [facility] on 03/30/2016 21:50 Should you have any questions prior to discharge, please contact a member of your healthcare team. If you have left the hospital and have any questions, please contact your primary care physician. Chief Complaint and Reason For Visit Chief Complaint Date of Onset SORE THROAT Function Status Unknown or Not Available. Plan of Care Unknown or Not Available. Referral/Transition of Care Unknown or Not Available.
--- OUTSIDE RECORDS SUMMARY | 2017-05-05 17:45 | XMS REPORT | CCD ---
Author Author LULI GARDNER Organization Unknown Address [address] [place], [place] [id number] Care Team Providers Care Silverware Etcher Name Role Phone FRANK MAK DO Attphys FRANK MAK DO Prisurg Vital Signs Unknown or Not Available. Allergies Allergy Code Allergy Type Reaction Status TAPE 0 Allergy to substance Active No Known Drug Allergies 0 No known drug allergies Active Procedures Unknown or Not Available. History of Immunizations Immunization Code Date Tdap 115 07/28/2013 Problems Problem Code Start Date Resolved Date Status SINGLE DELIVERY BY [id number] Active Results Unknown or Not Available. Active Medications Medication Code Dose Units Frequency Route Modification Start Date/Time Docusate Sodium 100MG Oral Capsule 7388318 100 MG NEEDED EVERY 12 H PO for constipation 07/29/2013 08:53 Prescription Detail 100 MG PO NEEDED EVERY 12 H for constipation Ibuprofen 800MG Oral Tablet 249070 800 MG NEEDED EVERY 8 HR PO FOR PAIN 07/29/2013 08:53 Prescription Detail 800 MG PO NEEDED EVERY 8 HR FOR PAIN Oxycodone And Acetaminophen 325MG-5MG Oral Tablet 8028947 1 TAB NEEDED EVERY 6 HR PO FOR PAIN 07/29/2013 08:53 Prescription Detail 1 TAB PO NEEDED EVERY 6 HR FOR PAIN Medications Administered During Visit Unknown or Not Available. Encounters Encounter Diagnosis Diagnosis Code Start Date Plantar fascial fibromatosis 41073248 02/23/2016 Social History Smoking Status Code Start Date End Date Former smoker [id number] 07/26/2013 Patient Decision Aids Unknown or Not Available. Discharge Instructions You were admitted to [facility] on 02/23/2016 12:52 with a principal diagnosis of Plantar fascial fibromatosis You were discharged from [facility] on 02/23/2016 13:37 Should you have any questions prior to discharge, please contact a member of your healthcare team. If you have left the hospital and have any questions, please contact your primary care physician. Chief Complaint and Reason For Visit Chief Complaint Date of Onset FOOT PAIN Function Status Unknown or Not Available. Referral/Transition of Care Unknown or Not Available.
--- OUTSIDE RECORDS SUMMARY | 2017-05-05 17:45 | XMS REPORT | CCD ---
Author Author LULI GARDNER Organization Unknown Address [address] [facility] [address] [place] [address] Care Team Providers Care Parachute Officer Name Role Phone MAK, FRANK DO Attphys MAKSTEPHANIAFRANK DO Prisurg Allergies Allergy Code Allergy Type Reaction Status TAPE 0 Allergy to substance Active No Known Drug Allergies 0 Drug allergy Active Active Medications Medication Code Dose Units Frequency Route Modification Start Date/Time Docusate Sodium 100MG Oral Capsule 1313177 100 MG NEEDED EVERY 12 H PO for constipation 07/29/2013 08:53 Prescription Detail 100 MG PO NEEDED EVERY 12 H for constipation Ibuprofen 800MG Oral Tablet 721846 800 MG NEEDED EVERY 8 HR PO FOR PAIN 07/29/2013 08:53 Prescription Detail 800 MG PO NEEDED EVERY 8 HR FOR PAIN Oxycodone And Acetaminophen 325MG-5MG Oral Tablet 1445266 1 TAB NEEDED EVERY 6 HR PO FOR PAIN 07/29/2013 08:53 Prescription Detail 1 TAB PO NEEDED EVERY 6 HR FOR PAIN Problems Problem Code Start Date Resolved Date Status SINGLE DELIVERY BY [id number] Active Procedures Unknown or Not Available. Results Unknown or Not Available. Function Status Unknown or Not Available. History of Immunizations Immunization Code Date Tdap 115 07/28/2013 Plan of Treatment Unknown or Not Available. Social History Smoking Status Code Start Date End Date Former smoker [id number] 07/26/2013 Vital Signs Unknown or Not Available. Function Status Unknown or Not Available. Goals Unknown or Not Available. ASSESSMENTS Unknown or Not Available. Health Concerns Section Unknown or Not Available.
[2017-05-05 18:32] VITALS: BP 135/80
[2017-05-05 19:39] VITALS: BP 124/76
[2017-05-06 00:30] VITALS: BP 128/84
[2017-05-06 04:30] VITALS: BP 132/80
[2017-05-06] MEDS ORDERED: KETOROLAC 30 MG/ML VIAL ONE (04:33)
[2017-05-06 06:50] LABS: BASOPHILS % (AUTO) 0 % (0-10); EOSINOPHILS % (AUTO) 0 % (0-10); LYMPHOCYTES # (AUTO) 2.1 X 10^3 (1.0-4.0); LYMPHOCYTES % (AUTO) 25 % (12-44); MEAN CORPUSCULAR HEMOGLOBIN 30 PG (25-34); MEAN CORPUSCULAR HGB CONC 34 G/DL (32-36); MEAN CORPUSCULAR VOLUME 89 FL (80-99); MEAN PLATELET VOLUME 11.6 FL (7.4-10.4); MONOCYTES # (AUTO) 0.6 X 10^3 (0.0-1.0); MONOCYTES % (AUTO) 8 % (0-12); NEUTROPHILS # (AUTO) 5.7 X 10^3 (1.8-7.8); NEUTROPHILS % (AUTO) 67 % (42-75); PLATELET COUNT 160 10^3/uL (130-400); RED BLOOD COUNT 2.99 10^6/uL (4.35-5.85); RED CELL DISTRIBUTION WIDTH 12.4 % (10.0-14.5); WHITE BLOOD COUNT 8.4 10^3/uL (4.3-11.0)
--- NOTE | 2017-05-06 07:33 | Progress Note-Standard ---
Standard Progress Note Progress Notes/Assess & Plan Date Seen by Provider: May 06, 2017 Time Seen by Provider: 07:20 Progress/Assessment & Plan Patient doing well POD 1 RLTCS. Reports good pain control. Ambulating and voiding freely. Lochia light. Vital Sign - Last 24 Hours 05/05/17 05/05/17 05/05/17 05/05/17 09:46 13:57 18:32 19:39 Temp 97.0 98.9 98.7 98.7 Pulse 67 79 80 99 Resp 18 18 18 18 B/P (MAP) 125/66 140/72 135/80 124/76 Pulse Ox 98 95 96 98 O2 Delivery Room Air Room Air Room Air Room Air 05/06/17 05/06/17 00:30 04:30 Temp 98.4 98.0 Pulse 85 86 Resp 18 18 B/P (MAP) 128/84 132/80 Pulse Ox 98 98 O2 Delivery Room Air Room Air Intake and Output 05/05/17 05/05/17 05/06/17 15:00 23:00 07:00 Intake Total 3250 ml 1250 ml 860 ml Output Total 230 ml 750 ml 100 ml Balance 3020 ml 500 ml 760 ml Physical Exam: General - Alert and oriented, no apparent distress Abdomen - Soft, appropriately tender to palpation, non-distended, fundus firm at umbilicus Incision - clean, dry and intact; no erythema or induration, no drainage Extremities -1+ pitting bilat LE edema, negative Rolando's bilaterally Laboratory Tests Test 05/05/17 13:57 05/06/17 06:23 Range/Units Glucometer 140 H 70-110 MG/DL White Blood Count 8.4 4.3-11.0 10^3/uL Red Blood Count 2.99 L 4.35-5.85 10^6/uL Hemoglobin 8.9 #L 11.5-16.0 G/DL Hematocrit 27 L 35-52 % Mean Corpuscular Volume 89 80-99 FL Mean Corpuscular Hemoglobin 30 25-34 PG Mean Corpuscular Hemoglobin Concent 34 32-36 G/DL Red Cell Distribution Width 12.4 10.0-14.5 % Platelet Count 160 130-400 10^3/uL Mean Platelet Volume 11.6 H 7.4-10.4 FL Neutrophils (%) (Auto) 67 42-75 % Lymphocytes (%) (Auto) 25 12-44 % Monocytes (%) (Auto) 8 0-12 % Eosinophils (%) (Auto) 0 0-10 % Basophils (%) (Auto) 0 0-10 % Neutrophils # (Auto) 5.7 1.8-7.8 X 10^3 Lymphocytes # (Auto) 2.1 1.0-4.0 X 10^3 Monocytes # (Auto) 0.6 0.0-1.0 X 10^3 Eosinophils # (Auto) 0.0 0.0-0.3 10^3/uL Basophils # (Auto) 0.0 0.0-0.1 10^3/uL Glucose Level 72 70-105 MG/DL Diagnosis: POD 1 RLTCS Acute blood loss anemia superimposed on anemia of GDMA20 checking BS to determine if ongoing treatment is needed BMI 37 P: Continue routine PO care Anticipate dc tomorrow ADE HOPPER DO May 06, 2017 7:33 am
[2017-05-06 08:00] VITALS: BP 131/82
[2017-05-06] MEDS: IBUPROFEN 600 MG (MOTRIN) TAB PO SCH ×3 (08:26→19:55)
[2017-05-06] MEDS: DOCUSATE SODIUM 100 MG (COLACE) CAP PO SCH ×2 (08:27→19:55)
[2017-05-06] MEDS: HYDROcodone/APAP 5 MG/325 MG (LORTAB) TAB PO PRN ×3 (08:27→21:15)
[2017-05-06 11:40] VITALS: BP 129/84
--- NOTE | 2017-05-06 14:40 | Anesthesia-Regional Post-Op ---
Regional Patient Condition Mental Status: Alert, Oriented x3 Circulation: Same as Pre-Op Headache: Absent Sensation: Full Recovery Motor Block: Absent Post Op Complications Complications None Follow Up Care/Instructions Patient Instructions None needed. Anesthesia/Patient Condition Patient is doing well, no complaints, stable vital signs, no apparent adverse anesthesia problems. No complications reported per nursing. JUN SUAZO CRNA May 06, 2017 14:40
[2017-05-06 16:40] VITALS: BP 129/76
[2017-05-06 20:00] VITALS: BP 135/88
[2017-05-07 02:00] VITALS: BP 136/72
[2017-05-07] MEDS: IBUPROFEN 600 MG (MOTRIN) TAB PO SCH ×2 (02:37→08:14)
[2017-05-07 08:01] VITALS: BP 138/78
[2017-05-07] MEDS ORDERED: FERR-84 PO (08:10)
[2017-05-07] MEDS: DOCUSATE SODIUM 100 MG (COLACE) CAP PO SCH (08:13)
--- NOTE | 2017-05-07 08:14 | Postpartum Progress Note ---
Post Op Post-operative Day #2 Subjective: Patient is without complaints. Ambulating, voiding after nuno removed. Tolerating a regular diet without nausea or vomiting. Normal lochia. Pain is well controlled with oral pain medications. Passing flatus. Breast feeding. Strongly desires d/c home. Objective: VS - Last 72 Hours, by Label 05/05/17 05/05/17 05/05/17 05/05/17 07:00 09:46 13:57 18:32 Temp 98.7 97.0 98.9 98.7 Pulse 93 67 79 80 Resp 18 18 18 18 B/P (MAP) 138/61 125/66 140/72 135/80 Pulse Ox 98 95 96 O2 Delivery Room Air Room Air Room Air Room Air 05/05/17 05/06/17 05/06/17 05/06/17 19:39 00:30 04:30 08:00 Temp 98.7 98.4 98.0 98.1 Pulse 99 85 86 86 Resp 18 18 18 18 B/P (MAP) 124/76 128/84 132/80 131/82 Pulse Ox 98 98 98 97 O2 Delivery Room Air Room Air Room Air Room Air 05/06/17 05/06/17 05/06/17 05/07/17 11:40 16:40 20:00 02:00 Temp 97.8 97.7 98.7 98.2 Pulse 90 71 74 77 Resp 18 18 18 16 B/P (MAP) 129/84 129/76 135/88 136/72 Pulse Ox 98 98 98 95 O2 Delivery Room Air Room Air Room Air Room Air 05/07/17 08:01 Temp 98.7 Pulse 78 Resp 18 B/P (MAP) 138/78 Pulse Ox 96 O2 Delivery Room Air Physical Exam: General - Alert and oriented, no apparent distress Abdomen - Soft, appropriately tender to palpation, non-distended, fundus firm at umbilicus Incision - clean, dry and intact; no erythema or induration, no drainage Extremities - no edema, negative Rolando's bilaterally Laboratory Tests Test 05/06/17 10:38 05/06/17 13:49 05/06/17 19:53 Range/Units Glucometer 99 131 H 147 H 70-110 MG/DL Assessment: 31 y/o post-operative day # 2, status post RLTCS. Recovering well, hemodynamically stable Acute blood loss anemia Hgb 8.9 Class II obesity BMI 37 Plan: Routine post-operative care. Encourage breast feeding. Encourage ambulation. VTE prophylaxis: SCDs. Ferrous sulfate supplementation. Plan for discharge today, f/u in one week with Dr. Waddell for incision check. Added iron to discharge. Needs 6 week 2 hr GTT to eval for occult DM, sugars mildly elevated after stopping GDM treatment. (99 to 147 2 hr pp). Vitals - Labs Vital Signs - I&O Vital Signs Date Time Temp Pulse Resp B/P (MAP) Pulse Ox O2 Delivery O2 Flow Rate FiO2 05/07/17 08:01 98.7 78 18 138/78 96 Room Air 05/07/17 02:00 98.2 77 16 136/72 95 Room Air 05/06/17 20:00 98.7 74 18 135/88 98 Room Air 05/06/17 16:40 97.7 71 18 129/76 98 Room Air 05/06/17 11:40 97.8 90 18 129/84 98 Room Air I & O 05/07/17 07:00 Intake Total 1920 ml Output Total 900 ml Balance 1020 ml Labs Laboratory Tests 05/06/17 10:38: Glucometer 99 05/06/17 13:49: Glucometer 131H 05/06/17 19:53: Glucometer 147H ARCENIO AVITIA MD May 07, 2017 08:14
== END 2017-05-07 10:40 | disposition home or self-care (01) | DRG 765 ==
LOC: LDRP 06:01
PROVIDERS: ADMIT Obstetrics & Gynecology; ATTEND Obstetrics & Gynecology
PROC: 3E0P05Z Introduction of Adhesion Barrier into Female Reproductive, Open Approach (ICD-10-PCS; 2017-05-05)
PROC: 10D00Z1 Extraction of Products of Conception, Low, Open Approach (ICD-10-PCS; principal; 2017-05-05 07:18)
DX: O34.211 Maternal care for low transverse scar from previous cesarean delivery (principal); O24.415 Gestational diabetes mellitus in pregnancy, controlled by oral hypoglycemic drugs; O99.03 Anemia complicating the puerperium; D62 Acute posthemorrhagic anemia; E66.9 Obesity, unspecified; O99.213 Obesity complicating pregnancy, third trimester; Z68.37 Body mass index [BMI] 37.0-37.9, adult; Z3A.38 38 weeks gestation of pregnancy; Z37.0 Single live birth; Z23 Encounter for immunization
CPT/HCPCS: 36415; 82947; 82962; 85025; 86850; 86900; 86901; 90707; 90715; 94664

== ENCOUNTER 2022-06-08 05:32 | Outpatient (CLI) | payer OTHER ==
[~2022-06-08] VITALS: Ht 162.6 cm; Wt 97.7 kg
[~2022-06-08 05:32] MED LIST changes: +ACHD5005 PO; -CITRIC ACID/SOB CIT (BICITRA) 30 ML UDC ONE; +DOCU100C37 PO; -FAMOTIDINE 20MG/2ML IV (PEPCID) ONE; +FERR-84 PO; +IBUP-1773 PO; -METOCLOPRAMIDE INJ 10 MG/2 ML (REGLAN) ONE; -ceFAZolin 2 GM/50 ML NS 50 ML ONE
[2022-06-08] MEDS ORDERED: INSU100V SQ (12:47)
[2022-06-08] MEDS ORDERED: METF-399 PO (12:47)
[2022-06-08] MEDS ORDERED: ASPI-999 PO (12:47)
[2022-06-08] MEDS ORDERED: INSU300I3 SQ (12:47)
== END 2022-06-08 12:59 | disposition home or self-care (01) ==
LOC: PREOP 05:32
PROVIDERS: ATTEND Obstetrics & Gynecology
DX: Z01.818 Encounter for other preprocedural examination (principal)

== ENCOUNTER 2022-06-15 06:30 | Inpatient (IN) | payer OTHER ==
[~2022-06-15] VITALS: Ht 162.6 cm; Wt 97.1 kg
[2022-06-15] VITALS (12 sets, daily range): BP systolic 106–145; BP diastolic 60–86
[~2022-06-15 06:30] MED LIST changes: +ASPI-999 PO; +INSU100V SQ; +INSU300I3 SQ; +METF-399 PO
[2022-06-15] MEDS ORDERED: NALOXONE 0.4 MG/ML 1 ML (NARCAN) VIAL IV PRN ×3 (07:15→10:00)
[2022-06-15] MEDS: LACTATED RINGERS 1,000 ML IV PRN ×2 (07:15→08:29)
[2022-06-15] MEDS ORDERED: TETANUS,DIPTH,PERTUSS P/F (BOOSTRIX) 0.5 ML VIAL IM SCH (07:15)
[2022-06-15] MEDS ORDERED: ONDANSETRON 4 MG/2 ML (SDV) Z0FRAN IVP PRN ×2 (07:15→10:00)
[2022-06-15] MEDS ORDERED: MEASLES,MUMPS,RUBELLA 1 EA INJ SC SCH (07:15)
--- NOTE | 2022-06-15 07:15 | History & Physical-OB ---
OB - Chief Complaint & HPI Date/Time Date of Admission: Date of Admission: Jun 15, 2022 at 06:30 Date seen by a Provider: Jun 15, 2022 Time Seen by a Provider: 07:15 Chief Complaint/History OB-Reason for Admission/Chief: Section Hx : 3 Hx Para: 2 Expected Date of Delivery: Jul 01, 2022 Gestational Age in Weeks: 37 Gestational Age in Days: 5 Indication for : desires repeat Other reason for admission: RLTCS, Class B DM poor control. Admission Nurse Assessment Rev: Yes Allergies and Home Medications Allergies Coded Allergies: No Known Drug Allergies (Unverified , 06/08/22) Patient Home Medication List Home Medication List Reviewed: Yes Aspirin (Aspirin) 81 Mg Tab.chew, 81 MG PO DAILY, (Reported) Entered as Reported by: LETI SORENSON on 06/08/221246 Insulin Glargine,Hum.rec.anlog (Toujeo Max Solostar) 300 Unit/Ml (3 Ml) Insuln.pen, 300 UNIT SQ UD, (Reported) Entered as Reported by: LETI SORENSON on 06/08/221246 Insulin Lispro (Humalog) 100 Unit/Ml Vial, 100 UNIT SQ UD, (Reported) Entered as Reported by: LETI SORENSON on 06/08/221246 Metformin HCl (Metformin HCl) 1,000 Mg Tablet, 1,000 MG PO BID, (Reported) Entered as Reported by: LETI SORENSON on 06/08/22 124 Vit #76/Iron,Carb/FA (Pnv 29-1 Tablet) 1 Each Tablet, 1 EACH PO DAILY, (Reported) Entered as Reported by: BRUNO MARTÍNEZ on 03/09/17 1248 Discontinued Medications Docusate Sodium (Docusate Sodium) 100 Mg Capsule, 100 MG PO BID Discontinued Reason: No Longer Taking Prescribed by: ADE HOPPER on 05/05/17 0732 Ferrous Sulfate (Iron) 325 Mg Tablet, 325 MG PO BID WITH MEALS Discontinued Reason: No Longer Taking Prescribed by: ARCENIO AVITIA on 05/07/17 0810 Hydrocodone Bit/Acetaminophen (Lortab 5 Mg Tablet) 1 Each Tablet, 1-2 TAB PO Q4H PRN for PAIN-MODERATE Discontinued Reason: No Longer Taking Prescribed by: ADE HOPPER on 05/05/17731 Ibuprofen (Ibuprofen) 600 Mg Tablet, 600 MG PO Q6H Discontinued Reason: No Longer Taking Prescribed by: ADE HOPPER on 05/05/17731 OB - History Hx of Present Care: Yes Ultrasounds: Normal mid trimester US Obstetrical Complications: Gestational Diabetes (chronic DM class C) Medical Complications: None Delivery History Adverse Rxn to Tranfusion: No (N/A) Patient Past Medical History BMI >35 DM Social History/Family History 2nd Hand Smoke Exposure: No Immunizations First/Initial COVID19 Vaccine: 07/11/21 Second COVID19 Vaccination: 08/03/21 Tetanus Booster (TDap): Unknown OB - Admission Exam Physical Exam HEENT: NCAT Heart: Rhythm Normal Lungs: Clear Abdomen: Gravid Extremities: Normal Reflexes: Normal Heart Rate: 130's Accelerations: Accelerations Present Decelerations: No Decelerations Short Term Variability: Present Third Loader Variability: Average (6-25) Contractions on Admission: >10 Minutes Apart Intensity: Mild OB - Assessment/Plan/Diagnosis Assessment Assessment: section Admission Dx 36 yo @ 37.5 Previous x 2 Class B, Pregestational diabetes GBS neg Admission Status: Inpatient Order (span 2 midnights) Reason for Inpatient Admission: RLTCS Plan Plan: Section WARDADE Carlo MORENO Jun 15, 2022 07:14
[2022-06-15] MEDS ORDERED: KETOROLAC 30 MG/ML VIAL ONE (07:22)
[2022-06-15] MEDS ORDERED: fentaNYL INJ 100 MCG/2 ML AMP ONE (07:22)
[2022-06-15] MEDS ORDERED: OXYTOCIN PRE-MIX DRIP 1,000 ML IV ONE (07:22)
[2022-06-15] MEDS ORDERED: ONDANSETRON 4 MG/2 ML (SDV) Z0FRAN ONE (07:22)
[2022-06-15] MEDS ORDERED: NS (IVPB) 0 ML ONE (07:27)
[2022-06-15] MEDS ORDERED: ceFAZolin 2 GM IV Premixed 50 ML ONE (07:28)
[2022-06-15] MEDS ORDERED: ceFAZolin 2 GM IV Premixed 50 ML IV ONE (07:30)
[2022-06-15] MEDS ORDERED: D5 LR IV SOLUTION 1,000 ML IV ONE (07:42)
[2022-06-15] MEDS ORDERED: D5 LR IV ONE (08:15)
[2022-06-15 08:23] LABS: BASOPHILS % (AUTO) 0 % (0-10); EOSINOPHILS # (AUTO) 0.1 10^3/uL (0.0-0.3); EOSINOPHILS % (AUTO) 1 % (0-10); HEMATOCRIT 34 % (35-52); HEMOGLOBIN 11.2 g/dL (11.5-16.0); LYMPHOCYTES # (AUTO) 1.8 10^3/uL (1.0-4.0); LYMPHOCYTES % (AUTO) 21 % (12-44); MEAN CORPUSCULAR HEMOGLOBIN 29 pg (25-34); MEAN CORPUSCULAR HGB CONC 33 g/dL (32-36); MEAN CORPUSCULAR VOLUME 88 fL (80-99); MEAN PLATELET VOLUME 11.2 fL (9.0-12.2); MONOCYTES # (AUTO) 0.6 10^3/uL (0.0-1.0); MONOCYTES % (AUTO) 7 % (0-12); NEUTROPHILS # (AUTO) 5.9 10^3/uL (1.8-7.8); NEUTROPHILS % (AUTO) 71 % (42-75); PLATELET COUNT 244 10^3/uL (130-400); WHITE BLOOD COUNT 8.3 10^3/uL (4.3-11.0)
[2022-06-15] MEDS ORDERED: PANT40TA2 PO (08:31)
[2022-06-15] MEDS ORDERED: LIRA0.6P SQ (08:31)
[2022-06-15] MEDS ORDERED: PATIENT MAY USE OWN MEDS, ALL MC SCH (08:45)
[2022-06-15] MEDS ORDERED: [UNRECOGNIZED DRUG - REMARK] SQ SCH (09:00)
[2022-06-15] MEDS ORDERED: BUPIVACAINE 0.25% 30 ML (SENSORCAINE) VIAL ONE (09:26)
[2022-06-15] MEDS: KETOROLAC 30 MG/ML VIAL IV SCH ×3 (09:30→20:45)
[2022-06-15] MEDS ORDERED: ONDANSETRON 4 MG/2 ML (SDV) Z0FRAN IV PRN (10:00)
[2022-06-15] MEDS ORDERED: PROMETHAZINE INJ 25 MG/ML (PHENERGAN) AMP IVP ONE (10:00)
[2022-06-15] MEDS ORDERED: morphine INJ 10 MG/ML 1ML (SYR OR VIAL) IVP ONE (10:00)
[2022-06-15] MEDS ORDERED: METOCLOPRAMIDE INJ 10 MG/2 ML (REGLAN) IV PRN (10:00)
[2022-06-15] MEDS ORDERED: diphenhydrAMINE 50 MG/ML INJ (BENADRYL) IV PRN (10:00)
[2022-06-15] MEDS ORDERED: HYDROmorphone 2 MG/ML VIAL (DILAUDID) IV ONE (10:00)
[2022-06-15] MEDS: OXYTOCIN PRE-MIX DRIP 500 ML IV SCH ×2 (10:11→13:10)
[2022-06-15] MEDS: DOCUSATE SODIUM 100 MG (COLACE) CAP PO SCH ×2 (13:10→20:39)
[2022-06-15] MEDS: METOCLOPRAMIDE 10 MG (REGLAN) TAB PO SCH ×2 (13:28→18:38)
--- NOTE | 2022-06-15 13:38 | OPERATIVE REPORT ---
DATE OF SERVICE: PREOPERATIVE DIAGNOSES: 1. A 36-year-old G4, P3 at 37 weeks and 5 days gestation. 2. Previous section. 3. Class B White's classification pregestational diabetic. POSTOPERATIVE DIAGNOSES: 1. A 36-year-old G4, P3 at 37 weeks and 5 days gestation. 2. Previous section. 3. Class B White's classification pregestational diabetic. PROCEDURE: Repeat low transverse section. SURGEON: Burton Hopper DO MEDIA COORDINATOR: Yanira Michael DNP, was necessary for manipulation and retraction throughout the procedure. ANESTHESIA: Spinal. ESTIMATED BLOOD LOSS: 400 mL. URINE OUTPUT: 300 mL clear at the end of the procedure. FLUIDS: 1600 mL lactated Ringer's solution. FINDINGS: A live female weighing 6 pounds 13 ounces, Apgars 8, 9 and 9. Grossly normal appearing uterus, bilateral fallopian tubes and ovaries. SPECIMEN SENT: Placenta. INDICATIONS FOR PROCEDURE: This 36-year-old female is a patient who had sought care in my office. Her was complicated by pregestational diabetes class B. She was managed with maternal medicine in [place], they recommended delivery at 37 to 38 weeks. Due to previous , we discussed repeat , she was agreeable to proceed with this. Risks of procedure were discussed with the patient in detail including risk of bleeding, infection, damage to surrounding structures including, but not limited to bowel, bladder, ureter, kidneys, possible need for reoperation, postoperative complications that may occur, recovery timeframe and even . After everything was discussed with the patient in detail, consent was obtained, the patient was taken to the operating room. OPERATIVE REPORT IN DETAIL: Once in the operating room, spinal analgesia was found to be adequate. She was placed in supine position with leftward tilt, prepped and draped in normal sterile fashion. Timeout was performed. Anesthesia was tested. I then make a Pfannenstiel skin incision through the previously existing scar using knife and carried down to underlying fascia using Bovie cautery. The fascial incision extended laterally using Bovie cautery. Superior aspect of fascial incision was then grasped with Ethan clamps, tented up and dissected off the underlying rectus muscles. The inferior aspect of the fascial incision was then grasped with Ethan clamps, tented up and dissected off the underlying rectus muscles. Rectus muscle dissected down the midline using sharp dissection, which exposed the peritoneum, which I entered bluntly and extended using blunt traction. Vikas ring retractor was placed in the peritoneal incision, which offers excellent lateral sidewall retraction. I identified the lower uterine segment, which was found to be thinned out and make a low transverse incision to the vesicouterine peritoneum and bluntly dissected off the lower uterine segment, creating a bladder flap and then proceeded with my myotomy until membranes were visualized, at which point I extended the uterine incision laterally and superiorly using bandage scissors. Amniotomy was then performed using Allis clamp. The infant was found in vertex presentation. With gentle fundal pressure, the infant's head was elevated through the incision where was delivered. The nares and oropharynx were bulb suctioned. Anterior and posterior shoulders were delivered. Infant was then brought out to the operative field with cord doubly clamped and cut and was handed off to waiting nurses in attendance. Cord blood was collected, 3-vessel cord with intact placenta was delivered spontaneously thereafter. IV Pitocin is initiated to facilitate uterine contraction. Uterine fundus confirmed by manual massage. Uterus was then exteriorized and cleared of all endometrial clots and debris. I then proceeded with closing the uterine incision using 0 Vicryl suture in running locked fashion. Second layer of imbricating 0 Monocryl was placed. Excellent hemostasis was noted after doing this. I then placed the uterus back in the pelvis and copiously irrigated the pelvis using normal saline. Once again, there was no active bleeding noted from any of my dissection planes. I placed Interceed antiadhesive over my low transverse incision. I then removed the Vikas ring retractor and proceeded with closing the peritoneum using 3-0 Vicryl suture in a running fashion. Rectus muscle reapproximated using 3-0 Vicryl suture in interrupted fashion. The fascia was reapproximated using 0 Vicryl suture in running fashion. The subcutaneous tissue was reapproximated using 3-0 plain interrupted subcutaneous stitch, the skin reapproximated using 4-0 Monocryl running subcuticular. Dermabond was applied to incision and sterile dressing with adhesive white tape. The patient tolerated the procedure well and sent to recovery area in stable condition. Lap and sponge counts were correct at the end of procedure. Instrument counts correct as well. Two grams of Ancef were given preoperatively for infection prophylaxis. Job ID: [id number] DocumentID: [id number] Dictated Date: 06/15/2022 09:50:45 Coverstitch Machine Operator Date: 06/15/2022 13:36:31 Dictated By: BURTON HOPPER DO
[2022-06-15] MEDS: CATHETER FLUSH 10 ML SYR IV SCH ×2 (15:45→20:42)
[2022-06-15] MEDS: [UNRECOGNIZED DRUG - REMARK] PO SCH (20:39)
[2022-06-15] MEDS: [UNRECOGNIZED DRUG - REMARK] SQ SCH (20:41)
[2022-06-16 01:08] VITALS: BP 134/64
[2022-06-16] MEDS: METOCLOPRAMIDE 10 MG (REGLAN) TAB PO SCH ×4 (01:08→18:46)
[2022-06-16] MEDS: HYDROcodone/APAP 5 MG/325 MG (LORTAB) TAB PO PRN ×5 (01:10→20:57)
[2022-06-16 04:56] VITALS: BP 132/62
[2022-06-16] MEDS: KETOROLAC 30 MG/ML VIAL IV SCH (04:56)
[2022-06-16] MEDS: CATHETER FLUSH 10 ML SYR IV SCH ×2 (04:57→14:00)
[2022-06-16 05:52] LABS: BASOPHILS % (AUTO) 0 % (0-10); EOSINOPHILS # (AUTO) 0.1 10^3/uL (0.0-0.3); EOSINOPHILS % (AUTO) 1 % (0-10); HEMATOCRIT 32 % (35-52); HEMOGLOBIN 10.7 g/dL (11.5-16.0); LYMPHOCYTES # (AUTO) 1.5 10^3/uL (1.0-4.0); LYMPHOCYTES % (AUTO) 16 % (12-44); MEAN CORPUSCULAR HEMOGLOBIN 29 pg (25-34); MEAN CORPUSCULAR HGB CONC 33 g/dL (32-36); MEAN CORPUSCULAR VOLUME 89 fL (80-99); MEAN PLATELET VOLUME 11.2 fL (9.0-12.2); MONOCYTES # (AUTO) 0.5 10^3/uL (0.0-1.0); MONOCYTES % (AUTO) 5 % (0-12); NEUTROPHILS # (AUTO) 7.1 10^3/uL (1.8-7.8); NEUTROPHILS % (AUTO) 77 % (42-75); PLATELET COUNT 255 10^3/uL (130-400); WHITE BLOOD COUNT 9.2 10^3/uL (4.3-11.0)
[2022-06-16 08:00] VITALS: BP 130/69
[2022-06-16] MEDS: DOCUSATE SODIUM 100 MG (COLACE) CAP PO SCH ×2 (08:00→20:57)
[2022-06-16] MEDS: PANTOPRAZOLE 40 MG (PROTONIX) TAB PO SCH (08:01)
[2022-06-16] MEDS: [UNRECOGNIZED DRUG - REMARK] PO SCH ×2 (08:02→20:58)
[2022-06-16] MEDS: [UNRECOGNIZED DRUG - REMARK] PO SCH (08:03)
[2022-06-16] MEDS: [UNRECOGNIZED DRUG - REMARK] SQ SCH (08:55)
[2022-06-16] MEDS: [UNRECOGNIZED DRUG - REMARK] SQ SCH ×2 (08:56→20:59)
[2022-06-16] MEDS: IBUPROFEN 600 MG (MOTRIN) TAB PO SCH ×3 (10:13→20:57)
--- NOTE | 2022-06-16 10:15 | Postpartum Progress Note ---
Note Note Day # 1 Subjective: Patient is without complaints. Ambulating, voiding. Tolerating a regular diet without nausea or vomiting. Normal lochia. Pain is well controlled with oral pain medications. Physical Exam: General - Alert and oriented, no apparent distress Abdomen - Soft, appropriately tender to palpation, non-distended, fundus firm at umbilicus; incision c/d/i Extremities - no edema, negative Rolando's bilaterally Assessment: Post- day # 1, status post RLTCS Recovering well, hemodynamically stable Acute blood loss anemia Type II DM Plan: Routine care. Encourage breast feeding. Encourage ambulation. Ferrous sulfate supplementation. [place] dosage adjustment to dosage, will continue to monitor blood sugars Plan for discharge tomorrow Vitals - Labs Vital Signs - I&O Vital Signs Date Time Temp Pulse Resp B/P (MAP) Pulse Ox O2 Delivery O2 Flow Rate FiO2 06/16/22 04:56 36.5 77 18 132/62 (85) 96 Room Air 06/16/22 01:08 36.5 87 18 134/64 (87) 97 Room Air 06/15/22 20:45 36.6 64 18 145/62 (89) 97 Room Air 06/15/22 15:45 36.8 68 18 145/75 (98) 97 Room Air 06/15/22 14:35 Room Air 06/15/22 11:27 36.5 65 18 131/75 (93) 99 Room Air 06/15/22 10:30 Room Air 06/15/22 10:30 36.5 18 112/65 (81) 97 Room Air 06/15/22 10:27 Room Air 06/15/22 10:23 Room Air 06/15/22 10:20 18 109/60 (76) 98 Room Air 06/15/22 10:20 Room Air I & O 06/16/22 06:59 Intake Total 5000 ml Output Total 2350 ml Balance 2650 ml Labs Laboratory Tests 06/16/22 05:10: White Blood Count 9.2, Red Blood Count 3.64L, Hemoglobin 10.7L, Hematocrit 32L, Mean Corpuscular Volume 89, Mean Corpuscular Hemoglobin 29, Mean Corpuscular Hemoglobin Concent 33, Red Cell Distribution Width 12.4, Platelet Count 255, Mean Platelet Volume 11.2, Immature Granulocyte % (Auto) 0, Neutrophils (%) (Auto) 77H, Lymphocytes (%) (Auto) 16, Monocytes (%) (Auto) 5, Eosinophils (%) (Auto) 1, Basophils (%) (Auto) 0, Neutrophils # (Auto) 7.1, Lymphocytes # (Auto) 1.5, Monocytes # (Auto) 0.5, Eosinophils # (Auto) 0.1, Basophils # (Auto) 0.0, Immature Granulocyte # (Auto) 0.0 FRANCISCO JAVIER MENJIVAR APRN Jun 16, 2022 10:15
--- NOTE | 2022-06-16 12:39 | Anesthesia-Regional Post-Op ---
Regional Patient Condition Mental Status: Alert, Oriented x3 Circulation: Same as Pre-Op Headache: Absent Sensation: Full Recovery Motor Block: Absent Post Op Complications Complications None Follow Up Care/Instructions Patient Instructions None needed. Anesthesia/Patient Condition Patient is doing well, no complaints, stable vital signs, no apparent adverse anesthesia problems. No complications reported per nursing. JUN SUAZO CRNA Jun 16, 2022 12:39
[2022-06-16 15:50] VITALS: BP 113/58
[2022-06-16 20:57] VITALS: BP 120/56
[2022-06-17 02:28] VITALS: BP 129/62
[2022-06-17] MEDS: IBUPROFEN 600 MG (MOTRIN) TAB PO SCH ×2 (02:28→08:17)
[2022-06-17] MEDS: HYDROcodone/APAP 5 MG/325 MG (LORTAB) TAB PO PRN (02:28)
[2022-06-17] MEDS: PANTOPRAZOLE 40 MG (PROTONIX) TAB PO SCH (07:38)
[2022-06-17] MEDS: [UNRECOGNIZED DRUG - REMARK] PO SCH (07:38)
[2022-06-17] MEDS: [UNRECOGNIZED DRUG - REMARK] PO SCH (07:38)
[2022-06-17] MEDS: [UNRECOGNIZED DRUG - REMARK] SQ SCH (07:39)
[2022-06-17] MEDS: [UNRECOGNIZED DRUG - REMARK] SQ SCH (07:40)
--- NOTE | 2022-06-17 08:06 | Postpartum Progress Note ---
Note Note Day # 2 Subjective: Patient is without complaints. Ambulating, voiding. Tolerating a regular diet without nausea or vomiting. Normal lochia. Pain is well controlled with oral pain medications.[] feeding. [] Objective: BS logs reviewed FBS 70s this AM, with limited control PP. Physical Exam: General - Alert and oriented, no apparent distress Abdomen - Soft, appropriately tender to palpation, non-distended, fundus firm at umbilicus Extremities - no edema, negative Rolando's bilaterally Assessment: POD 2 RLTCS Class B DM- poor control Plan: Routine care. Encourage breast feeding. Encourage ambulation. Ferrous sulfate supplementation. Plan for discharge today Vitals - Labs Vital Signs - I&O Vital Signs Date Time Temp Pulse Resp B/P (MAP) Pulse Ox O2 Delivery O2 Flow Rate FiO2 06/17/22 02:28 36.4 106 18 129/62 (84) 96 Room Air 06/16/22 20:57 36.7 110 18 120/56 (77) 97 Room Air 06/16/22 15:50 36.1 105 18 113/58 (76) 97 Room Air I & O 06/17/22 07:00 Intake Total 1200 ml Output Total 700 ml Balance 500 ml ADE HOPPER DO Jun 17, 2022 08:06
[2022-06-17] MEDS: DOCUSATE SODIUM 100 MG (COLACE) CAP PO SCH (08:17)
[2022-06-17 08:19] VITALS: BP 114/62
--- NOTE | 2022-06-17 08:23 | Discharge Inst-Women's Service ---
Discharge Inst-Women's Serv Depart Medication/Instructions New, Converted or Re-Newed RX: Transmitted to Pharmacy Final Diagnosis POD 2 RLTCS Problems Reviewed?: Yes Consults/Follow Up Additional Follow Up: Yes Orders/Referrals Dr. Waddell in 7 -10 days Activity Activity: Activity as Tolerated Driving Instructions: No Driving for 1 Week NO SMOKING: NO SMOKING Nothing Inside Vagina: No Douching, No [place], No Tampons Diet Discharge Diet: No Restrictions Symptoms to Report to : Bleeding Excessive, Pain Increased, Fever Over 101 Degrees F, Vaginal Bleeding Increase, Questions/Concerns For Any Problems or Questions: Contact Your Physician Skin/Wound Care Infection Signs and Symptoms: Increased Redness, Foul Odor of Wound, Increased Drainage, Skin Itchy or Has a Rash, Increased Swelling, Temperature Above 101 F Operative Area Clean and Dry: Keep Incision Clean/Dry Stitches/[place]/Dermabond: Dermabond, Care of Stitches Bathing Instructions: ADE Mixon DO Jun 17, 2022 08:23
[2022-06-17] MEDS ORDERED: IBUP-844 PO (08:24)
[2022-06-17] MEDS ORDERED: DOCU100C37 PO (08:24)
[2022-06-17] MEDS ORDERED: ACHD5005 PO (08:24)
[2022-06-17] MEDS: METOCLOPRAMIDE 10 MG (REGLAN) TAB PO SCH ×2 (09:37)
== END 2022-06-17 11:15 | disposition home or self-care (01) | DRG 786 ==
LOC: LDRP 06:30
PROVIDERS: ADMIT Obstetrics & Gynecology; ATTEND Obstetrics & Gynecology
PROC: 10D00Z1 Extraction of Products of Conception, Low, Open Approach (ICD-10-PCS; principal; 2022-06-15 08:29)
DX: O34.211 Maternal care for low transverse scar from previous cesarean delivery (principal); O24.12 Pre-existing type 2 diabetes mellitus, in childbirth; D62 Acute posthemorrhagic anemia; Z3A.37 37 weeks gestation of pregnancy; Z37.0 Single live birth; E11.65 Type 2 diabetes mellitus with hyperglycemia; O90.81 Anemia of the puerperium; Z79.4 Long term (current) use of insulin; Z79.84 Long term (current) use of oral hypoglycemic drugs; Z79.82 Long term (current) use of aspirin
CPT/HCPCS: 36415; 82947; 85025; 86850; 86900; 86901; 94664